=== PATIENT | male | born 1965 | race Caucasian/White ===

== ENCOUNTER 2017-03-26 10:30 | Emergency (ER) | payer BC, OTHER ==
[2017-03-26] MEDS ORDERED: DIPH,PERTUS(ACELL)TETVAC-LF 0.5 ML VIAL IM ONE (11:43)
--- NOTE | 2017-03-26 11:47 | ED ---
Wound/Laceration HPI - General Chief Complaint: Wound/Laceration Stated Complaint: [facility] - HEAD LACERATION Time Seen by Provider: 03/26/17 11:22 Source: patient, RN notes reviewed Mode of arrival: ambulatory Limitations: no limitations - History of Present Illness Initial Comments: 51-year-old male presents emergency Department chief complaint laceration to the scalp. Patient states that he was at work working states he stood up and caught the corner of a fork lift. Patient states he is unsure when his last tetanus was. Patient denies headache, dizziness, blurred vision, LOC, nausea vomiting. Patient states he has approximate 4 inch laceration to his scalp. - Related Data Home Medications Medication Instructions Recorded Confirmed Sertraline [Zoloft] 100 mg PO HS 11/21/15 03/26/17 Allergies Allergy/AdvReac Type Severity Reaction Status Date / Time No Known Allergies Allergy Verified 11/21/15 19:36 Review of Systems ROS Statement: Those systems with pertinent positive or pertinent negative responses have been documented in the HPI. ROS Other: All systems not noted in ROS Statement are negative. Past Medical History Past Medical History: No Reported History History of Any Multi-Drug Resistant Organisms: None Reported Past Surgical History: No Surgical Hx Reported Past Psychological History: No Psychological Hx Reported Smoking Status: Current every day smoker Past Alcohol Use History: Rare Past Drug Use History: None Reported General Exam Limitations: no limitations General appearance: alert, in no apparent distress Head exam: Present: normocephalic. Absent: atraumatic, normal inspection (6cm laceration to the scalp) Eye exam: Present: normal appearance, PERRL, EOMI. Absent: scleral icterus, conjunctival injection, periorbital swelling ENT exam: Present: normal exam, mucous membranes moist Neck exam: Present: normal inspection. Absent: tenderness, meningismus, lymphadenopathy Respiratory exam: Present: normal lung sounds bilaterally. Absent: respiratory distress, wheezes, rales, rhonchi, stridor Cardiovascular Exam: Present: regular rate, normal rhythm, normal heart sounds. Absent: systolic murmur, diastolic murmur, rubs, gallop, clicks Neurological exam: Present: alert, oriented X3, CN II-XII intact, reflexes normal, other (Finger-nose intact bilaterally without shooting). Absent: motor sensory deficit Course Vital Signs 03/26/17 10:38 Temperature 98.5 F Pulse Rate 62 Respiratory 20 Rate Blood Pressure 180/99 O2 Sat by Pulse 100 Oximetry Procedures - Laceration Laceration #1 Time Out Performed: Yes Indication: laceration Site: scalp Size (cm): 6 Description: linear Depth: simple, single layer Anesthetic Used: lidocaine 1%, without epi Anesthesia Technique: local infiltration Amount (mls): 5 Pre-repair: wound explored, irrigated extensively, deep structures intact Type of Sutures: nylon Size of Sutures: 4-0 Number of Sutures: 8 Technique: running Patient Tolerated Procedure: well, no complications Medical Decision Making - Medical Decision Making 51-year-old male present emergency from for scalp laceration. This was closed using a running suture. Patient had no sick head injury. Patient will be discharged at this time with return parameters. 7 days for suture removal. Disposition Clinical Impression: Scalp laceration Disposition: HOME SELF-CARE Condition: Stable Instructions: Care For Your Stitches (ED), Laceration (ED) Additional Instructions: Please return to the Emergency Department if symptoms worsen or any other concerns. Have sutures removed in 7 days Referrals: Quinn Magaña MD [Primary Care Provider] - 1-2 days Time of Disposition: 11:46
[2017-03-26 12:13] VITALS: BP 160/99; PULSE 60; RESP 16; TEMP 98
== END 2017-03-26 12:16 | disposition home or self-care (01) ==
LOC: EC 10:30
DX: S01.01XA Laceration without foreign body of scalp, initial encounter (principal); F17.200 Nicotine dependence, unspecified, uncomplicated; Z23 Encounter for immunization; Z79.899 Other long term (current) drug therapy; W26.8XXA Contact with other sharp object(s), not elsewhere classified, initial encounter; Y92.69 Other specified industrial and construction area as the place of occurrence of the external cause; Y99.0 Civilian activity done for income or pay
CPT/HCPCS: 12002; 90471; 90715; 99282

== ENCOUNTER 2025-01-26 19:09 | Emergency (ER) | payer OTHER ==
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
[2025-01-26] MEDS: MUPIROCIN 2% OINT 22 GM TUBE TOPICAL STA (20:10)
[2025-01-26] MEDS: DIPH,PERTUS(ACELL)TETVAC-LF 0.5 ML VIAL IM ONE (20:11)
[2025-01-26 20:16] VITALS: BP 161/101; PULSE 72; RESP 16; TEMP 98.1
== END 2025-01-26 20:16 | disposition home or self-care (01) ==
LOC: EC 19:09
DX: T24.221A Burn of second degree of right knee, initial encounter (principal); F17.200 Nicotine dependence, unspecified, uncomplicated; Z23 Encounter for immunization; X08.8XXA Exposure to other specified smoke, fire and flames, initial encounter
CPT/HCPCS: 90471; 90715; 99282